=== PATIENT | female | born 1970 ===

== ENCOUNTER 2016-12-11 09:08 | Emergency (ER) | payer OTHER ==
[2016-12-11 09:26] VITALS: BMI 33.5
[2016-12-11 09:27] VITALS: TEMP 98
--- NOTE | 2016-12-11 09:43 | ED PDOC ---
Arrival/HPI - General Chief Complaint: Chest Pain Time Seen by Provider: 12/11/16 09:18 Historian: Patient - History of Present Illness Narrative History of Present Illness (Text): 12/11/16 09:40 A 46 year old female, who denies any significant past medical history, presents to emergency department for left arm and chest pain, which began late last night. The patient states yesterday when going to bed she had a "shock/scare" and then immediately felt pain that travelled from her left hand up to her chest. She reports the pain as "pinching pressure" and it came and went quickly. She denies ever feeling this way before and any family history of myocardial infarctions. The patient denies any fever, cough, or any other complaints at this time. Time/Duration: 24 hours Symptom Onset: Sudden Symptom Course: Improving Quality: Pressure Activities at Onset: Rest Context: Home Past Medical History - Provider Review Nursing Documentation Reviewed: Yes - Psychiatric Hx Substance Use: No - Surgical History Hx Section: Yes - Anesthesia Hx Anesthesia: No Family/Social History - Physician Review Nursing Documentation Reviewed: Yes Family/Social History: Unknown Family HX Smoking Status: Never Smoked Hx Alcohol Use: No Hx Substance Use: No Allergies/Home Meds Allergies/Adverse Reactions: Allergies No Known Allergies Allergy (Unverified 12/11/16 09:39) Home Medications: Home Meds Medication Instructions Recorded Confirmed No Known Home Med 12/11/16 12/11/16 Review of Systems - Physician Review All systems were reviewed & negative as marked: Yes - Review of Systems Constitutional: absent: Fevers Respiratory: absent: Cough Cardiovascular: Chest Pain Musculoskeletal: Other (minor lower extremity swelling) Physical Exam Vital Signs Reviewed: Yes Vital Signs Temp Pulse Pulse Resp BP BP Pulse Ox 12/11/16 12:09 63 17 137/91 H 100 12/11/16 09:33 80 122/87 12/11/16 09:26 98.0 F 84 18 122/87 99 Temperature: Afebrile Blood Pressure: Normal Pulse: Regular Respiratory Rate: Normal Appearance: Positive for: Well-Appearing, Non-Toxic, Comfortable Pain Distress: None Mental Status: Positive for: Alert and Oriented X 3 - Systems Exam Head: Present: Atraumatic, Normocephalic Pupils: Present: PERRL Extroacular Muscles: Present: EOMI Mouth: Present: Moist Mucous Membranes Neck: Present: Normal Range of Motion Respiratory/Chest: Present: Clear to Auscultation, Good Air Exchange. No: Respiratory Distress, Accessory Muscle Use Cardiovascular: Present: Regular Rate and Rhythm, Normal S1, S2. No: Murmurs Abdomen: Present: Normal Bowel Sounds. No: Tenderness, Distention, Peritoneal Signs Upper Extremity: Present: Normal ROM, NORMAL PULSES, Neurovascularly Intact, Other (ulnar nerve tenderness bilaterally elbow). No: Edema, Swelling, Erythema Lower Extremity: Present: Normal Inspection, Normal ROM. No: Edema Neurological: Present: GCS=15, CN II-XII Intact, Speech Normal, Motor Func Grossly Intact, Normal Sensory Function, Normal Cerebellar Funct, Norm Deep Tendon Reflexes, Gait Normal, Memory Normal, Normal 2Pt Descrimination Skin: Present: Warm, Dry, Normal Color. No: Rashes Psychiatric: Present: Alert, Oriented x 3, Normal Insight, Normal Concentration Medical Decision Making ED Course and Treatment: 12/11/16 09:30 Impression: A 46 year old female with chest pain. Differential Diagnosis included but are not limited to: ACS vs Radiculopathy Plan: -- EKG -- Chest X-ray -- Labs -- Reassess and disposition Progress Notes: 12/11/16 09:35 EKG: Ordered, reviewed, and independently interpreted the EKG. Rate : 68 BPM Rhythm : NSR Interpretation : No ST-segment elevations or depressions, no T-wave inversions, normal intervals. Comparison : No previous EKG for comparison. 12/11/16 12:09 On reevaluation, patient continued to be asymptomatic. CXR negative. EKG reviewed. Labs normal. Patient will make sure to follow up with her primary care doctor in 1-2 days. I also advised her to follow up with a roll reclaimer. - Lab Interpretations Lab Results: 12/11/16 09:50 12/11/16 09:50 Lab Results 12/11/16 09:50: Sodium 142, Potassium 4.2, Chloride 105, Carbon Dioxide 28, Anion Gap 13, BUN 13, Creatinine 0.7, Est GFR ( Amer) > 60, Est GFR (Non- Af Amer) > 60, Random Glucose 98, Calcium 9.5, Magnesium 1.9, Total Bilirubin 0.5, AST 23, ALT 32, Alkaline Phosphatase 88, Lactate Dehydrogenase 504, Total Creatine Kinase 113, Troponin I < 0.01, Total Protein 7.7, Albumin 4.5, Globulin 3.2, Albumin/Globulin Ratio 1.4 12/11/16 09:50: WBC 3.9 L D, RBC 4.34, Hgb 13.0, Hct 39.0, MCV 89.9, MCH 30.0, MCHC 33.3, RDW 12.9, Plt Count 220, MPV 11.7 H, Gran % 32.7 L, Lymph % (Auto) 52.1 H, [place] % (Auto) 9.5 H, Eos % (Auto) 4.9, Baso % (Auto) 0.8, Gran # 1.28 L , Lymph # 2.0, [place] # 0.4, Eos # 0.2, Baso # 0.03 - RAD Interpretation Radiology Orders: 12/11/16 09:35 CHEST PORTABLE [RAD] Stat - Scribe Statement The provider has reviewed the documentation as recorded by the Scribe Cristina Potts Provider Scribe Attestation: All medical record entries made by the Scribe were at my direction and personally dictated by me. I have reviewed the chart and agree that the record accurately reflects my personal performance of the history, physical exam, medical decision making, and the department course for this patient. I have also personally directed, reviewed, and agree with the discharge instructions and disposition. Disposition/Present on Arrival - Present on Arrival Any Indicators Present on Arrival: No History of DVT/PE: No History of Uncontrolled Diabetes: No Urinary Catheter: No History of Decub. Ulcer: No History Surgical Site Infection Following: None - Disposition Have Diagnosis and Disposition been Completed?: Yes Diagnosis: Chest pain, Neuropathy Disposition: HOME/ ROUTINE Disposition Time: 12:09 Patient Plan: Discharge Condition: IMPROVED Discharge Instructions (ExitCare): Chest Pain (ED) Additional Instructions: Ms Quinn, thank you for letting us take care of you today. Your provider was Dr. Landa. You were treated for Chest Pain, Neuropathy. The emergency medical care you received today was directed at your acute symptoms. If you were prescribed any medication, please fill it and take as directed. It may take several days for your symptoms to resolve. Return to the Emergency Department if your symptoms worsen, do not improve, or if you have any other problems. Please contact your doctor or call one of the physicians/clinics you have been referred to that are listed on the Patient Visit Information form that is included in your discharge packet. Bring any paperwork you were given at discharge with you along with any medications you are taking to your follow up visit. Our treatment cannot replace ongoing medical care by a primary care provider (PCP) outside of the emergency department. Thank you for allowing the [facility] team to be part of your care today. If you had an X-Ray or CT scan: A Radiologist will review the ED reading if any change in treatment is needed we will contact you. If you had a blood, urine, or wound culture: It will take several days for the results, if any change in treatment is needed we will contact you. If you had an STI test: It will take 48 hours for the results. Please call after 1 week if you have not heard back. Referrals: [facility], [Non-Staff] - Follow up with primary Forms: [employer] (Martiniquais), WORK NOTE
[2016-12-11 10:13] LABS: BASO # 0.03 K/mm3 (0.0-2.0); BASO % 0.8 % (0.0-3.0); EOS # 0.2 (0.0-0.7); EOS % 4.9 % (1.5-5.0); GRAN # 1.28 (1.4-6.5); GRAN % 32.7 % (50.0-68.0); LYMPH % 52.1 % (22.0-35.0); MEAN CELL VOLUME 89.9 fl (80.0-105.0); MEAN CORPUSCULAR HGB CONC 33.3 g/dl (31.0-37.0); MEAN PLATELET VOLUME 11.7 fl (7.0-11.0); MONO # 0.4 (0.1-0.6); MONO % 9.5 % (1.0-6.0); RED CELL DISTRIBUTION WIDTH 12.9 % (11.5-14.5); WHITE BLOOD COUNT 3.9 10^3/ul (4.5-11.0)
[2016-12-11 10:16] LABS: ALB/GLOB RATIO 1.4 (1.1-1.8); ALKALINE PHOSPHATASE 88 U/L (38-126); ALT/SGPT 32 U/L (7-56); AST/SGOT 23 U/L (14-36); BILIRUBIN,TOTAL 0.5 mg/dL (0.2-1.3); BLOOD UREA NITROGEN 13 mg/dL (7-21); CALCIUM 9.5 mg/dL (8.4-10.5); CARBON DIOXIDE 28 mmol/L (21-33); CHLORIDE 105 mmol/L (98-107); GFR AFRICAN-AMERICAN > 60; GLUCOSE,RANDOM 98 mg/dL (70-110); MAGNESIUM 1.9 mg/dL (1.7-2.2); POTASSIUM 4.2 mmol/L (3.6-5.0); SODIUM 142 mmol/L (132-148); TOTAL PROTEIN 7.7 g/dL (5.8-8.3)
[2016-12-11 10:33] LABS: TROPONIN I < 0.01 ng/mL
[2016-12-11 12:59] VITALS: BP 137/91; PULSE 63; RESP 17; O2SAT 100
--- NOTE | 2016-12-11 13:14 | RAD ---
HISTORY: chest pain COMPARISON: 03/02/2015 FINDINGS: LUNGS: No active pulmonary disease. PLEURA: No significant pleural effusion identified, no pneumothorax apparent. CARDIOVASCULAR: Normal. OSSEOUS STRUCTURES: No significant abnormalities. VISUALIZED UPPER ABDOMEN: Normal. OTHER FINDINGS: None. IMPRESSION: No active disease.
--- NOTE | 2016-12-11 20:49 | CARD ---
APPROVED REPORT EKG Measurement Heart [id number] <Conclusion> Normal sinus rhythm Normal ECG
== END 2016-12-11 12:06 | disposition home or self-care (01) ==
LOC: ED 09:08
DX: R07.9 Chest pain, unspecified (principal); G62.9 Polyneuropathy, unspecified